=== PATIENT | female | born 1970 | race Caucasian/White ===

== ENCOUNTER 2018-11-12 10:05 | Day surgery (SDC) | payer OTHER ==
[~2018-11-12] VITALS: Ht 167.6 cm; Wt 121.8 kg
[~2018-11-12 10:05] MED LIST: THYR60 PO; [UNRECOGNIZED DRUG - OTHER]
--- NOTE | 2018-11-12 10:56 | NUR ---
Ambulatory in Day Surgery History, Chart, Medications and Allergies reviewed before start of procedure.Lungs clear T/O to Auscultation. Patient confirms NPO status and agrees with scheduled surgery. Patient reports completing Chlorhexadine shower X2 prior to admission to hospital.Surgical site prepped with 2% Chlorhexidine cloth wipe. Patient States Post-Procedure ride home has been arranged.
--- NOTE | 2018-11-12 14:54 | NUR ---
11/12/18 1454 Suki Vargas VERIFICATIONS, AUDITS. VERIFIED 20CC .25% BUPIVICAINE WITH EPI GIVEN WITH LIBRADO COPELAND.
--- NOTE | 2018-11-12 15:30 | NUR ---
Patient up to Ambulate independently. Gait steady. SURGERICAL SITE AT THE [facility] RESTARTED TO BLEED WHEN PATIENT STOOD UP. GAUZE DRESSING APPLIED AND HELD PRESSURE FOR 5 MINS. REINFORCED WITH NEW GUAZE AND MEFIX TAPE, NO BLEEDING NOTED UPON STANDING. ALL OTHER SITES D&I. Discharge instructions reviewed with patient. Patient verbalizes understanding. Copy given to patient to take home. Patient States Post-Procedure ride home has been arranged. Discharged via wheelchair to private car for ride home.
== END 2018-11-12 15:28 | disposition home or self-care (01) ==
LOC: ORSCMMR 10:05 → ORD 11:30 → ORSCMMR 11:30
PROVIDERS: Obstetrics & Gynecology
PROC: 0U5B8ZZ Destruction of Endometrium, Via Natural or Artificial Opening Endoscopic (ICD-10-PCS; principal; 2018-11-12 11:30)
PROC: 0UB74ZZ Excision of Bilateral Fallopian Tubes, Percutaneous Endoscopic Approach (ICD-10-PCS; principal; 2018-11-12 11:30)
DX: N92.4 Excessive bleeding in the premenopausal period (principal); D25.9 Leiomyoma of uterus, unspecified; Z30.2 Encounter for sterilization; Z79.899 Other long term (current) drug therapy; E66.01 Morbid (severe) obesity due to excess calories; Z68.41 Body mass index [BMI] 40.0-44.9, adult
CPT/HCPCS: 88302; 88305; J1100; J1885; J2250; J2405; J2704; J2710; J2765; J3010; J7120

== ENCOUNTER → 2021-02-11 | Outpatient (CLI) | payer OTHER ==
[2021-02-11 17:57] LABS: Source, Urine Clean Catch
[2021-02-11 19:29] LABS: Appearance, Urine Clear (Clear); Bilirubin, Urine Neg (Neg); Blood, Urine 2+ (Neg); Color, Urine Yellow (P-Yellow); Glucose Qualitative, Urine Neg (Neg); Ketones, Urine Neg (Neg); Leukocyte Esterase, Urine 3+ (Neg); Nitrite, Urine Neg (Neg); Protein, Urine 1+ (Neg); Urobilinogen, Urine NORM (Normal)
[2021-02-11 19:53] LABS: Squamous Epithelial Cells Few /hpf (Few)
[2021-02-11 19:54] LABS: Bacteria Few /hpf
== END | disposition home or self-care (01) ==
LOC: LAB 17:51 → LAB SHORT 17:51
PROVIDERS: Obstetrics & Gynecology
DX: R30.0 Dysuria (principal)
CPT/HCPCS: 81001; 87077; 87086; 87186

== ENCOUNTER → 2022-05-26 | Outpatient (CLI) | payer OTHER ==
[2022-06-02 08:10] LABS: HPV 16 Negative (Negative); HPV 18 Negative (Negative); HPV OTHER HR TYPES Negative (Negative)
== END ==
LOC: LAB 11:20 → LAB SHORT 11:20
PROVIDERS: Obstetrics & Gynecology
DX: Z01.419 Encounter for gynecological examination (general) (routine) without abnormal findings (principal)
CPT/HCPCS: 87624; G0145